=== PATIENT | female | born 1975 | race Caucasian/White ===

== ENCOUNTER 2020-07-23 20:47 | Emergency (ER) | payer BC ==
[~2020-07-23] VITALS: Ht 160 cm; Wt 117.0 kg
[2020-07-23] MEDS ORDERED: HYDROCHLOROTH12.5 M2 PO (20:58)
[2020-07-23] MEDS ORDERED: LEVOTHYROXINE137 MCG PO (20:58)
[2020-07-23] MEDS ORDERED: METFORMIN HYDR750 MG PO (20:58)
[2020-07-23] MEDS ORDERED: PHARMASSURE V500 MCG PO (20:59)
[2020-07-23] MEDS ORDERED: VITAMIN D350 MCG PO (20:59)
[2020-07-23] MEDS ORDERED: NAPROSYN500 MG PO (21:46)
== END 2020-07-23 21:50 | disposition home or self-care (01) ==
LOC: ED 20:47
DX: M25.561 Pain in right knee (principal); I10 Essential (primary) hypertension; F17.200 Nicotine dependence, unspecified, uncomplicated; Z79.899 Other long term (current) drug therapy; Z88.2 Allergy status to sulfonamides